=== PATIENT | female | born 1945 | race Caucasian/White ===

== ENCOUNTER 2020-10-23 23:15 | Emergency (ER) | payer MEDICARE ==
[~2020-10-23 23:15] MED LIST: ALPRAZOLAM0.25 MG PO; BUSPAR5 MG PO; CATAPRES-TTS 31 EACH TOP; COLACE100 MG PO; COZAAR100 MG PO; EFFEXOR XR75 MG PO; HYDRALAZINE25 MG PO; MIRALAX17 GM PO; POTASSIUM CHLO10 ME1 PO; PULMICORT FLEX90 MCG INH; QVAR REDIHALE10.6 G1 INH; SERTRALINE HCL50 MG PO; TESSALON PERLE100 MG PO; TOPROL XL100 MG PO; VENTOLIN HFA IN18 GM INH; VITAMIN B-12500 MCG PO; VITAMIN D35000 UNI1 PO; ZOFRAN4 MG PO
== END 2020-10-24 01:45 | disposition home or self-care (01) ==
LOC: FER 23:15
DX: S00.83XA Contusion of other part of head, initial encounter (principal); I10 Essential (primary) hypertension; J45.909 Unspecified asthma, uncomplicated; Z86.73 Personal history of transient ischemic attack (TIA), and cerebral infarction without residual deficits; W05.0XXA Fall from non-moving wheelchair, initial encounter; Y92.129 Unspecified place in nursing home as the place of occurrence of the external cause
CPT/HCPCS: 70450; 72125